=== PATIENT | female | born 1965 | race Caucasian/White ===

== ENCOUNTER 2024-08-03 01:07 | Emergency (ER) | payer BC, OTHER ==
[2024-08-03] MEDS: HYDROmorphone 1 MG/ML Syringe ONE (01:41)
[2024-08-03] MEDS: HYDROmorphone 1 MG/ML Syringe IVPUSH ONE (01:42)
== END 2024-08-03 03:23 | disposition home or self-care (01) ==
LOC: JD.ED 01:07
DX: S83.005A Unspecified dislocation of left patella, initial encounter (principal); Z88.2 Allergy status to sulfonamides; Z79.890 Hormone replacement therapy; Z79.899 Other long term (current) drug therapy; W18.40XA Slipping, tripping and stumbling without falling, unspecified, initial encounter
CPT/HCPCS: 27560; 73564; 96374; 99283; J1171